=== PATIENT | female | born 1955 | race Hispanic/Latino ===

== ENCOUNTER → 2018-07-15 | Outpatient (CLI) | payer MEDICARE ==
[~2018-07-15] MED LIST: REGADENOSON 0.4 MG/5 ML SYR IV ONE
--- NOTE | 2018-07-17 17:15 | Myoview Stress Test ---
DATE OF STUDY: 07/15/2018 09:56:00 PROCEDURE TITLE: Rest/stress single isotope SPECT imaging with pharmacologic stress and gated SPECT imaging. PROCEDURE: Pharmacologic stress testing was performed with regadenoson per protocol. The heart rate was 79 beats per minute at rest and increased to 97 beats per minute during the regadenoson infusion. The rest blood pressure was 171/70 mmHg and increased to 200/82 mmHg, which is a normal response. The resting electrocardiogram demonstrated normal sinus rhythm. There were no ST-segment changes suggestive of myocardial ischemia. Myocardial perfusion imaging was performed at rest following the injection of 11 mCi of tetrofosmin. At peak pharmacologic effect, the patient was injected with 31 mCi of tetrofosmin. Gated post-stress tomographic imaging was performed. FINDINGS: The overall quality of the study is fair. Left ventricular cavity is noted to be normal size on the rest and stress studies. SPECT images demonstrate homogeneous tracer distribution throughout the myocardium. Gated SPECT imaging reveals normal myocardial thickening and wall motion. The left ventricular ejection was calculated to be 70%. IMPRESSION: Myocardial perfusion imaging is normal. Overall left ventricular systolic function was normal without regional wall motion abnormalities. Misty Husain MD ABS/MODL /[id number]
== END ==
LOC: NM 09:39
PROVIDERS: ATTEND Internal Medicine Interventional Cardiology
DX: R07.9 Chest pain, unspecified (principal)
CPT/HCPCS: 78452; 93017; 93306; A9502; J2785

== ENCOUNTER → 2020-07-27 | Outpatient (CLI) | payer MEDICARE | LOC: RAD 13:07 | PROVIDERS: ATTEND Family Medicine | DX: E11.621 Type 2 diabetes mellitus with foot ulcer (principal); L97.511 Non-pressure chronic ulcer of other part of right foot limited to breakdown of skin | CPT/HCPCS: 87071; 87075; 87205 ==

== ENCOUNTER → 2020-08-09 | Outpatient (CLI) | payer MEDICARE | LOC: MRI 13:44 | PROVIDERS: ATTEND Family Medicine | DX: E11.621 Type 2 diabetes mellitus with foot ulcer (principal); L97.511 Non-pressure chronic ulcer of other part of right foot limited to breakdown of skin ==

== ENCOUNTER 2020-08-10 13:31 | Outpatient (RCR) | payer MEDICARE ==
[~2020-08-10 13:31] MED LIST changes: +LIDOCAINE VISC 2% SOLN 15 ML UDC ONE; +MUPIROCIN 2% OINT 22 GM TUBE ONE; -REGADENOSON 0.4 MG/5 ML SYR IV ONE
[2020-08-10] MEDS ORDERED: LIDOCAINE VISC 2% SOLN 15 ML UDC ONE (14:18)
== END 2020-08-12 ==
LOC: WCC 13:31
PROVIDERS: ATTEND Family Medicine
DX: E11.621 Type 2 diabetes mellitus with foot ulcer (principal); E11.628 Type 2 diabetes mellitus with other skin complications; L97.511 Non-pressure chronic ulcer of other part of right foot limited to breakdown of skin; I87.2 Venous insufficiency (chronic) (peripheral); I89.0 Lymphedema, not elsewhere classified; R60.0 Localized edema; I10 Essential (primary) hypertension; K46.9 Unspecified abdominal hernia without obstruction or gangrene; K58.0 Irritable bowel syndrome with diarrhea

== ENCOUNTER 2020-09-05 08:06 | Outpatient (RCR) | payer MEDICARE ==
[~2020-09-05 08:06] MED LIST changes: +LIDOCAINE/PRILOCAINE 2.5-2.5% KIT ONE
[2020-09-05] MEDS ORDERED: SODIUM CHLORIDE 0.9% INJ 250 ML BAG ONE (17:41)
== END 2020-09-12 ==
LOC: WCC 08:06
PROVIDERS: ATTEND Family Medicine
DX: E11.621 Type 2 diabetes mellitus with foot ulcer (principal); E11.628 Type 2 diabetes mellitus with other skin complications; L97.511 Non-pressure chronic ulcer of other part of right foot limited to breakdown of skin; I87.2 Venous insufficiency (chronic) (peripheral); I89.0 Lymphedema, not elsewhere classified; R60.0 Localized edema; I10 Essential (primary) hypertension; B96.89 Other specified bacterial agents as the cause of diseases classified elsewhere; K46.9 Unspecified abdominal hernia without obstruction or gangrene; K58.0 Irritable bowel syndrome with diarrhea
CPT/HCPCS: 11042 ×2; 99213 ×3; J7050

== ENCOUNTER → 2025-01-28 | Outpatient (REF) | payer MEDICARE ==
[~2025-01-28] MED LIST changes: +IOPAMIDOL 370 MG/ML 100 ML INFUS..BTL INJ ONE; -LIDOCAINE VISC 2% SOLN 15 ML UDC ONE; -LIDOCAINE/PRILOCAINE 2.5-2.5% KIT ONE; -MUPIROCIN 2% OINT 22 GM TUBE ONE; +SODIUM CHLORIDE 0.9% 100 ML ONE; +SODIUM CHLORIDE 0.9% 500ML 500 ML ONE
[2025-01-28 16:37] LABS: EST GLOMERULAR FILTRATION RATE 40.0 ML/MIN (>=60)
== END ==
LOC: CT 15:39
PROVIDERS: ATTEND Internal Medicine
DX: R79.1 Abnormal coagulation profile (principal); R79.89 Other specified abnormal findings of blood chemistry
CPT/HCPCS: 36415; 71260; 82565; 84520; 96360; J7040; J7050; Q9967